=== PATIENT | female | born 1930 | race Caucasian/White ===

== ENCOUNTER → 2021-03-05 | Outpatient (CLI) | payer MEDICARE, BC | LOC: EXRD 09:26 | DX: Z78.0 Asymptomatic menopausal state (principal); Z00.00 Encounter for general adult medical examination without abnormal findings; Z13.820 Encounter for screening for osteoporosis; M85.852 Other specified disorders of bone density and structure, left thigh | CPT/HCPCS: 77080 ==

== ENCOUNTER → 2021-08-05 | Outpatient (CLI) | payer MEDICARE, BC | LOC: EXRD 13:16 | DX: M79.644 Pain in right finger(s) (principal); M79.631 Pain in right forearm; M25.531 Pain in right wrist | CPT/HCPCS: 73090; 73110; 73130 ==